=== PATIENT | female | born 1955 | race Caucasian/White ===

== ENCOUNTER 2019-10-04 21:21 | Inpatient (IN) | payer BC, OTHER ==
[~2019-10-04] VITALS: Ht 157.5 cm; Wt 47.6 kg
--- NOTE | 2019-10-05 01:00 | NUR ---
GPS RN: ADMISSION NOTES ADMITTED A 64-YR OLD FEMALE, FROM [facility]. ADMITTED ON 5150 FOR DTS. PER HOLD, PT. SISTER'S CALLED 911 STATING HER SISTER SAID SHE WAS GOING TO TAKE PILLS AND A BAG OVER HER HEAD TO KILL HERSELF. PT STATING SHE HAD THOUGHTS OF HURTING HERSELF IN THE PAST. THE PATIENT FURTHER STATED SHE HAD BEEN DEPRESSED. UPON FACE TO FACE ASSESSMENT, PATIENT IS ALERT, ORIENTED X3-4, DEPRESSED, CALM AND COOPERATIVE. DENIES SI/HI/AVH AT THIS TIME. VERBALIZATION OF FEELINGS ENCOURAGED. PT WAS ADVISED OF THE HOLD. PT'S RIGHTS HANDBOOK AND A GUIDE TO PRESCRIPTION MEDICATION GIVEN. IN NO APPARENT DISTRESS NOTED. BELONGINGS WERE INVENTORIED AND CHECKED FOR CONTRABAND. PT. IS UNDER THE PSYCHIATRIC CARE OF DR. JOHNSON ORDERS OBTAINED, AND UNDER THE MEDICAL CARE OF ANGIE ONEILL, SPOKE WITH ANGIE ONEILL REGARDING MED RECON NEEDS TO BE DONE. SKIN BODY ASSESSMENT DONE. PT DENIES PAIN/ DISCOMFORT. BED LOCKED AND PLACED IN LOWEST POSITION TO MAINTAIN SAFETY. FALL PRECAUTIONS IMPLEMENTED. WILL CONTINUE TO MONITOR Q15 MINS. FOR SAFETY AND BEHAVIOR.
[2019-10-05] MEDS ORDERED: LISI40TA4 PO (01:20)
[2019-10-05 01:30] VITALS: BP 150/95
[2019-10-05] MEDS ORDERED: ACETAMINOPHEN 325 MG TABLET PO PRN (01:30)
[2019-10-05] MEDS ORDERED: MAGNESIUM HYDROXIDE 30 ML UDC PO PRN (01:30)
[2019-10-05] MEDS ORDERED: MAG HYDROX/AL HYDROX/SIMETH 30 ML UDC PO PRN (01:30)
[2019-10-05] MEDS ORDERED: BLOOD SUGAR DIAGNOSTIC 1 EACH STRIP IN ONE (01:30)
[2019-10-05] MEDS ORDERED: ONDANSETRON 4 MG TAB.RAPDIS SL PRN (02:00)
--- NOTE | 2019-10-05 02:02 | NUR ---
GPS-RN NOTE: PATIENT REPORTED THAT SHE IS FEELING NAUSEOUS. V/S WNL. NO C/O DIZZINESS, NO EMESIS, OR DIARRHEA NOTED. SPOKE WITH RUSTIC FENCE BUILDER MAI NOTIFIED FINDING ASSESSMENT WITH NEW ORDER OF ZOFRAN 4MG SL Q6HR PRN NOTED AND CARRIED OUT. 0302 - PATIENT ASLEEP AT THIS TIME. NO C/O NAUSEA AND VOMITING NOTED. WILL CONTINUE TO MONITOR.
[2019-10-05] MEDS ORDERED: NICO-676 TP (04:50)
[2019-10-05 08:00] VITALS: BP 165/99
--- NOTE | 2019-10-05 08:45 | NUR ---
UR NOTE: AUTHORIZATION#[id number] OBTAINED FROM [place] [place] WITH [facility] DEPT. @ [phone] NO BULLET ASSEMBLY PRESS OPERATOR ASSIGNED AT THIS TIME. A THREADING MACHINE FEEDER AUTOMATIC FROM 'S INVOLUNTARY HOLD TEAM WILL CONTACT [facility] BULLET ASSEMBLY PRESS OPERATOR WITH REQUEST FOR CLINICALS.
--- NOTE | 2019-10-05 11:37 | NUR ---
INITIAL DISCHARGE PLAN: Pt wishes to return home [address] [facility] [address] . SW will help form a safe and proper discharge in collaboration with .
[2019-10-05] MEDS: LISINOPRIL (10MG) 10 MG TABLET PO SCH (12:41)
--- NOTE | 2019-10-05 14:30 | NUR ---
Individual Counseling:SW met with patient in the activates room. The patient appears neat, appropriate eye contact and full affect. SW engaged patient in conversation regarding Substance abuse. The patient stated that drinking alcohol has been a problem for her in the past. Patient stated she has been attending AA meeting the past two years which had helped her quit. However, due to Pandemic the AA meeting have been held via Zoom. Patient stated, "It's not the same to meet online as opposed to in person meetings". SW used empathetic listening, and validation. SW explored the patient's support system and made a list with pt. of loved ones who can help keep her accountable. Patient stated that AA meetings are beginning to meet in person with safety guideline (social distancing) and she plans to return when discharged. Patient denies Hallucinations, and SI. Patient will be invited to attend the next therapeutic milieu.
[2019-10-05 15:10] LABS: CHOLESTEROL 321 mg/dL (<200); HDL CHOLESTEROL 112 mg/dL (40-60); LDL 192 mg/dL (0-99); TRIGLYCERIDES 104 mg/dL (30-150)
[2019-10-05 15:55] LABS: APPEARANCE,URINE CLEAR (CLEAR); BILIRUBIN,URINE NEGATIVE (NEGATIVE); BLOOD, URINE TRACE-INTA Ery/uL (NEGATIVE); COLOR,URINE YELLOW (YELLOW); KETONES,URINE NEGATIVE (NEGATIVE); LEUKOCYTE ESTERASE ,URINE NEGATIVE (NEGATIVE); NITRITE, URINE NEGATIVE (NEGATIVE); PH,URINE 7.5 (5.0-8.0); PROTEIN,URINE NEGATIVE (NEGATIVE); UGLUCOSE NEGATIVE (NEGATIVE)
[2019-10-05 16:00] VITALS: BP_SYST 116; BP_SYST 123; BP_DIAS 75; BP_DIAS 83
[2019-10-05 16:03] LABS: BACTERIA,URINE None seen /HPF (None Seen); SQUAMOUS EPITHELIAL CELL,UR Rare /HPF (None Seen); WBC,URINE 0-2 /HPF (0-3)
--- NOTE | 2019-10-05 19:20 | NUR ---
GPS RN OPENING NOTE: RECEIVED PT SITTING IN BED. A & O X 3. NO ACUTE DISTRESS NOTED. DISHEVELED, WAITING TO BE SEEN BY PSYCHIATRIST. PT ASYMPTOMATIC AT PRESENT TIME. PT DEPRESSED AND WITHDRAWN. PT DENIES SI AND IS ABLE TO CONTRACT FOR SAFETY AT PRESENT TIME. PT DENIES HI/AH/VH. AMBULATORY/STEADY. BED IN LOW LOCKED POSITION. ENVIRONMENTAL SAFETY CHECKS DONE. PT IS COOPERATIVE WITH CARE. WILL CONT TO MONITOR Q 15 MINUTES FOR SAFETY AND BEHAVIOR PER GPS PROTOCOL.
[2019-10-05 20:00] VITALS: BP 111/73
[2019-10-05 20:04] VITALS: BP 111/73
--- NOTE | 2019-10-05 20:15 | NUR ---
SEEN BY DR. JOHNSON PATIENT IS BEING SEEN BY DR. JOHNSON AT THIS TIME. WILL FOLLOW UP IF THERE IS ANY NEW ORDERS.
--- NOTE | 2019-10-05 20:40 | NUR ---
GPS RN NOTE PATIENT SEEN BY DR. JOHNSON WITH NEW ORDER OF PAXIL 10 [address] JOHNSON DISCUSSED PLAN OF CARE WITH THE PATIENT. WILL CONTINUE TO MONITOR FOR ANY CHANGES.
[2019-10-05] MEDS: PAROXETINE HCL 10 MG TABLET PO SCH (22:10)
--- NOTE | 2019-10-06 06:41 | NUR ---
GPS RN NOTE PATIENT WAS REFUSING BLOOD DRAW FOR ORDERED LABS, AFTER EXPLANATIONS, PATIENT AGREED BUT STATED," THIS IS THE LAST TIME & I AM GOING HOME AFTER 72 HOURS & NO MORE BLOOD DRAWS." WILL CONTINUE TO MONITOR FOR ANY BEHAVIOR CHANGES.
[2019-10-06 07:17] LABS: BASOPHILS # (AUTO) 0.1 /CMM (0.0-0.2); BASOPHILS % (AUTO) 1.4 % (0.0-2.0); EOSINOPHILS % (AUTO) 6.2 % (0.0-6.0); HEMATOCRIT 40 % (33-45); HEMOGLOBIN 13.5 g/dL (11.5-14.8); LYMPHOCYTES # (AUTO) 1.5 /CMM (0.8-4.8); LYMPHOCYTES % (AUTO) 34.3 % (20.0-44.0); MEAN CORPUSCULAR HGB CONC 34 g/dl (31.0-36.0); MEAN CORPUSCULAR VOLUME 104 fL (82-100); MONOCYTES # (AUTO) 0.4 /CMM (0.1-1.30); MONOCYTES % (AUTO) 8.8 % (2.0-12.0); NEUTROPHILS # (AUTO) 2.1 /CMM (1.8-8.9); NEUTROPHILS % (AUTO) 49.3 % (43.0-81.0); PLATELET COUNT (AUTO) 257 /CMM (150-450); WHITE BLOOD COUNT (AUTO) 4.3 K/uL (4.3-11.0)
[2019-10-06 08:00] VITALS: BP 132/82
[2019-10-06 08:06] LABS: ALBUMIN 3.6 g/dL (3.4-5.0); BILIRUBIN,TOTAL 0.5 mg/dL (0.2-1.0); CALCIUM, SERUM 9.3 mg/dL (8.5-10.1); CREATININE 0.5 mg/dL (0.6-1.3); MAGNESIUM 1.9 mg/dL (1.8-2.4); PHOSPHORUS 4.7 mg/dL (2.5-4.9); POTASSIUM 4.3 mmol/L (3.5-5.1); TOTAL PROTEIN, SERUM 7.3 g/dL (6.4-8.2)
[2019-10-06 08:23] LABS: THYROID STIMULATING HORMONE 5.544 uIU/mL (0.358-3.74)
[2019-10-06 08:34] LABS: CHOLESTEROL 302 mg/dL (<200); HDL CHOLESTEROL 106 mg/dL (40-60); LDL 194 mg/dL (0-99); TRIGLYCERIDES 91 mg/dL (30-150)
[2019-10-06] MEDS: NICOTINE PATCH (14MG) 14 MG PATCH.TD24 TD SCH ×2 (08:56→09:00)
[2019-10-06] MEDS: LISINOPRIL (10MG) 10 MG TABLET PO SCH (08:56)
--- NOTE | 2019-10-06 14:47 | NUR ---
INDIVIDUAL INTERVENTION: This SW met patient at bedside. However, pt stated that she did not feel like talking today and wanted to remain in bed. SW respected pts right to self determination and told her she would attempt at a later time. Pt agreed.
--- NOTE | 2019-10-06 15:41 | NUR ---
INDIVIDUAL INTERVENTION: This SW met patient at bedside to discuss pts discharge plan. Pt stated that she wants to be discharged as soon as her 72 hour hold expires. Pt stated that she spoke with MD and told him that she will not stay any longer. Pt stated that if not discharged tomorrow she will be calling pts rights and file a WRIT. SW stated that she would communicate with MD regarding her discharge.
--- NOTE | 2019-10-06 19:15 | NUR ---
GPS RN OPENING NOTE: RECEIVED PT RESTING IN BED. A & O X 3. NO ACUTE DISTRESS NOTED. DISHEVELED, PT ASYMPTOMATIC AT PRESENT TIME. PT IS TALKATIVE TODAY. NO BEHAVIOR SYMPTOMS NOTED AT THIS TIME. INTERACTS WHEN ENGAGED. PT DENIES SI AND IS ABLE TO CONTRACT FOR SAFETY AT PRESENT TIME. PT DENIES HI/AH/VH. AMBULATORY/STEADY. BED IN LOW LOCKED POSITION. ENVIRONMENTAL SAFETY CHECKS DONE. PT IS COOPERATIVE WITH CARE. WILL CONT TO MONITOR Q 15 MINUTES FOR SAFETY AND BEHAVIOR PER GPS PROTOCOL.
[2019-10-06 20:00] VITALS: BP 131/85
[2019-10-06 20:31] VITALS: BP 131/85
[2019-10-06] MEDS: PAROXETINE HCL 10 MG TABLET PO SCH (21:15)
[2019-10-07 08:00] VITALS: BP 128/83
[2019-10-07 08:40] VITALS: BP 128/83
[2019-10-07] MEDS: LISINOPRIL (10MG) 10 MG TABLET PO SCH (08:40)
[2019-10-07] MEDS: NICOTINE PATCH (14MG) 14 MG PATCH.TD24 TD SCH ×2 (08:40→08:53)
--- NOTE | 2019-10-07 09:32 | NUR ---
DISCHARGE NOTE: Pt will be discharged via private vehicle at [address] [place] [address] . Pts friend Bennie will be picking pt up. Pts mood is euthymic with congruent affect. Pt denied visual/auditory hallucinations and denied suicidal/homicidal ideation. Pt is well groomed and dressed and is alert and oriented x4. Pt was given a referral [place] [address] . Pt sttaes she will continue to attend AA meetings located at [address] [place] [address]. Pt will also follow up with Psychiatrist: Dr. Jaylen Borrego Address: [address], [place] [address] and Web Assistant: Dr. Dayo Rutledge Address: [address] [place] [address] [address], [place] [address] . The multidisciplinary exitcare form was done, printed, signed, and given to the patient.
--- NOTE | 2019-10-07 10:17 | NUR ---
RN-CO: Patient denied suicidal and homicidal ideation. Denied auditory and visual hallucinations. No acute distress noted noted. Her affect is bright.Patient is ready to be discharge today. Her friend will pick her up at 1300. Dr Ha ordered to discontinue hold and discharge patient, he wrote prescription.
--- NOTE | 2019-10-07 13:10 | NUR ---
Discharged pt home and was picked up by her friend, Bennie .Pt signed all the discharge papers and brought all her belongings and prescription upon discharge. Patient denied suicidal and homicidal ideation. Denied auditory and visual hallucinations. No acute distress noted noted. Her affect is bright.
== END 2019-10-07 13:10 | disposition home or self-care (01) | DRG 881 ==
LOC: GPS 10-05 00:41
PROVIDERS: ADMIT Psychiatry & Neurology Psychiatry
DX: F32.9 Major depressive disorder, single episode, unspecified (principal); R45.851 Suicidal ideations; E03.9 Hypothyroidism, unspecified; I10 Essential (primary) hypertension
CPT/HCPCS: 36415; 80053-TC; 80061-TC; 81000-TC; 82962-TC; 83735-TC; 84100-TC; 84443-TC; 85025-TC; 87081-TC; 87086-TC; Q0162